=== PATIENT | female | born 1970 | race Caucasian/White ===

== ENCOUNTER → 2017-01-08 | Outpatient (CLI) | payer OTHER ==
--- NOTE | 2017-01-08 16:41 | KCIC ---
Bilateral digital screening mammograms with CAD: HISTORY Routine screening. COMPARISON Comparison is made to previous examinations dated 05/31/2015 and 05/18/2014. FINDINGS Breast density category D. The skin and nipples show no abnormalities. No abnormal lymph nodes are seen in the axilla. The breast parenchyma is extremely dense. There are no dominant masses, suspicious calcifications or architectural distortions. IMPRESSION No evidence of malignancy. Recommend routine annual mammographic screening. This study was interpreted with the benefit of Computerized Aided Detection (CAD). Mammography is not 100% sensitive in detecting breast cancer. Therefore, a self breast exam and a clinical breast exam are very important. A negative mammogram does not negate a clinically suspicious finding and should not result in a delay in biopsying a clinically suspicious abnormality. BI-RADS category 1. Negative. This patient's information has been entered into a reminder system for the patient to be notified with the results of this examination and a target date for her next mammograms. Electronically signed by: Crystal Camargo MD (Jan 08, 2017 16:40:11)
== END | disposition home or self-care (01) ==
LOC: KCIC MAMMO 14:28
DX: Z12.31 Encounter for screening mammogram for malignant neoplasm of breast (principal)
CPT/HCPCS: G0202; 77067

== ENCOUNTER → 2017-07-21 | Outpatient (CLI) | payer OTHER ==
--- NOTE | 2017-07-21 14:36 | KCIC ---
THYROID ULTRASOUND History: Enlarged thyroid Comparison: None. Findings: Multiple sonographic images of the thyroid gland are submitted. Right lobe measured 3.5 x 1.1 x 1.6 cm. Left lobe measured 3 x 0.9 x 0 1.3 cm. Isthmus measures 0.2 cm in thickness. There is diffuse heterogeneity of the thyroid parenchyma bilaterally, not associated with hyperemia. No discrete nodularity is demonstrated although somewhat nodular appearance of the thyroid parenchyma diffusely. Impression: 1. There is nonspecific heterogeneity of the thyroid parenchyma, no discrete nodularity demonstrated. Thyroid gland is not considered significantly enlarged. Electronically signed by: Jimbo Flores MD (07/21/2017 2:33 PM) [id number]
== END | disposition home or self-care (01) ==
LOC: KCIC US 13:52
DX: E04.9 Nontoxic goiter, unspecified (principal)
CPT/HCPCS: 76536